=== PATIENT | female | born 1995 | race Caucasian/White ===

== ENCOUNTER 2018-01-20 14:26 | Outpatient (CLI) | END 2018-01-20 17:15 | disposition home or self-care (01) ==

== ENCOUNTER 2018-03-03 08:06 | Outpatient (CLI) | END 2018-03-03 10:37 | disposition home or self-care (01) ==

== ENCOUNTER 2018-03-17 20:16 | Outpatient (CLI) | END 2018-03-18 00:55 | disposition home or self-care (01) ==

== ENCOUNTER 2018-03-28 04:55 | Outpatient (CLI) | END 2018-03-28 07:00 | disposition home or self-care (01) ==

== ENCOUNTER 2018-03-29 08:03 | Inpatient (IN) | END 2018-04-01 18:25 | disposition home or self-care (01) | DRG 807 ==